=== PATIENT | male | born 1980 | race Caucasian/White ===

== ENCOUNTER 2022-12-24 07:21 | Emergency (ER) | payer BC, OTHER ==
[2022-12-24 09:06] LABS: ANION GAP 13.6 mmol/L (5-15); CHLORIDE,CL 95 mmol/L (98-107); ESTIMATED GFR 76 mL/min (>=60); SODIUM,NA 130 mmol/L (136-145)
[2022-12-24 09:24] LABS: CORONAVIRUS COVID-19 NAA NEGATIVE (NEGATIVE)
[2022-12-24 09:25] LABS: RESPIRATORY SYNCYTIAL VIR NAA NEGATIVE (NEGATIVE)
[2022-12-24] MEDS ORDERED: cefTRIAXone 1 GM, Lidocaine 1% 2.1 ML IM ONE ×2 (09:26)
[2022-12-24] MEDS ORDERED: Take Home: Doxycycline 100 MG Tab, 4 Tab Pack PO ONE (09:27)
[2022-12-24] MEDS ORDERED: Take Home: Codeine/Promethazine 10-6.25 MG/5 ML Syrup 5 ML, 2 Cup Pack PO ONE (09:27)
== END 2022-12-24 09:45 | disposition home or self-care (01) ==
LOC: VM.ED 07:21
DX: J18.9 Pneumonia, unspecified organism (principal); Z20.822 Contact with and (suspected) exposure to COVID-19
CPT/HCPCS: 0241U; 36415; 71045; 80048; 96372; 99285; A9270; J0696; 99284; J3490